=== PATIENT | male | born 1980 | race Caucasian/White ===

== ENCOUNTER 2018-03-18 21:04 | Emergency (ER) | payer SELFPAY ==
[2018-03-18] MEDS ORDERED: Acetaminophen 500 MG TAB ONE (21:09)
[2018-03-18] MEDS ORDERED: Ibuprofen 200 MG TAB ONE (21:53)
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
== END 2018-03-18 21:54 ==
LOC: BURERS 21:04
DX: S00.83XA Contusion of other part of head, initial encounter (principal); Y04.0XXA Assault by unarmed brawl or fight, initial encounter
CPT/HCPCS: 70450